=== PATIENT | female | born 1995 | race Caucasian/White ===

== ENCOUNTER 2024-05-16 00:49 | Emergency (ER) | payer OTHER ==
[~2024-05-16] VITALS: Ht 165.1 cm; Wt 59.0 kg
[2024-05-16 01:02] VITALS: BP 11/69; PULSE 87; RESP 18; TEMP 98.2; O2SAT 98
[2024-05-16] MEDS ORDERED: AMOX1TAB16 MT (02:02)
[2024-05-16] MEDS ORDERED: BO1 TP (02:02)
[2024-05-16] MEDS ORDERED: IBUP-2029 MT (02:02)
[2024-05-16] MEDS: BACITRACIN ZINC OINT UDPKT TOP ONE (02:04)
[2024-05-16] MEDS: IBUPROFEN 600MG TABLET PO ONE (02:04)
[2024-05-16] MEDS: ACETAMINOPHEN WITH CODEINE 300/30MG TABLET PO ONE (02:04)
[2024-05-16] MEDS: TETANUS, DIPHTHERIA, PERTUSSIS VAC/PF 0.5ML (>10YR OLD) IM ONE (02:05)
== END 2024-05-16 02:41 | disposition home or self-care (01) ==
LOC: ER 00:49
DX: S60.222A Contusion of left hand, initial encounter (principal); S60.211A Contusion of right wrist, initial encounter; W54.0XXA Bitten by dog, initial encounter; Y93.89 Activity, other specified; Y92.89 Other specified places as the place of occurrence of the external cause; Y99.8 Other external cause status
CPT/HCPCS: 73090; 73110; 73130; 81025; 90471; 90715; 99284